=== PATIENT | female | born 1960 | race Native Hawaiian/Other Pacific Islander ===

== ENCOUNTER 2020-04-06 01:16 | Emergency (ER) | payer OTHER ==
[~2020-04-06] VITALS: Ht 154.9 cm; Wt 80.0 kg
[2020-04-06] MEDS ORDERED: [UNRECOGNIZED DRUG - OTHER] PO (01:26)
[2020-04-06] MEDS ORDERED: HTN MEDS PO (01:26)
[2020-04-06] MEDS ORDERED: DIABETIC MEDS PO (01:26)
[2020-04-06] MEDS ORDERED: GABA-529 PO (01:30)
[2020-04-06] MEDS ORDERED: CLOP75TA32 PO (01:30)
[2020-04-06] MEDS ORDERED: LOSA100T58 PO (01:30)
[2020-04-06] MEDS ORDERED: DiphenhydrAMINE HCL 25 MG CAPSULE PO ONE (01:45)
[2020-04-06] MEDS ORDERED: CloNIDine HCL 0.2 MG TABLET PO ONE (01:45)
[2020-04-06 03:09] VITALS: BP 185/104
== END 2020-04-06 03:14 | disposition home or self-care (01) ==
LOC: EMS 01:16
DX: L50.9 Urticaria, unspecified (principal); I10 Essential (primary) hypertension; E11.9 Type 2 diabetes mellitus without complications; J45.909 Unspecified asthma, uncomplicated; Z88.0 Allergy status to penicillin; Z79.899 Other long term (current) drug therapy
CPT/HCPCS: 93005

== ENCOUNTER 2020-04-17 10:53 | Emergency (ER) | payer OTHER ==
[~2020-04-17] VITALS: Ht 154.9 cm; Wt 79.5 kg
[~2020-04-17 10:53] MED LIST: CLOP75TA32 PO; GABA-529 PO; LOSA100T58 PO
[2020-04-17 11:17] LABS: GLUCOSE,POINT OF CARE 292 MG/DL (70-110)
[2020-04-17] MEDS ORDERED: SODIUM CHLORIDE 0.9% 100 ML ONE (11:45)
[2020-04-17] MEDS ORDERED: PB/HYOSCY/ATR/SCOP/LIDO/MAALOX 55 ML BOTTLE PO ONE (11:45)
[2020-04-17] MEDS ORDERED: IOVERSOL 320 MG/ML 100 ML VIAL ONE (11:45)
[2020-04-17 12:18] LABS: BASOPHILS % (AUTO) 0.3 % (0.0-2.0); EOSINOPHILS % (AUTO) 3.6 % (1.0-6.0); HEMATOCRIT 38.9 % (36-46); HEMOGLOBIN 12.8 g/dL (12.0-16.0); LYMPHOCYTES # (AUTO) 1.4 K/uL (1.0-4.8); LYMPHOCYTES % (AUTO) 22.6 % (22.0-44.0); MEAN CORPUSCULAR HEMOGLOBIN 27.4 pg (26.0-34.0); MEAN CORPUSCULAR HGB CONC 32.9 G/dL (31.0-37.0); MEAN CORPUSCULAR VOLUME 83 fL (80-100); MONOCYTES # (AUTO) 0.5 K/uL (0.1-1.0); MONOCYTES % (AUTO) 8.5 % (2.0-9.0); NEUTROPHILS # (AUTO) 3.9 K/uL (1.8-7.7); PLATELET COUNT (AUTO) 207 K/uL (150-450); RED BLOOD CELL COUNT(AUTO) 4.67 MIL/uL (4.00-5.20); RED CELL DISTRIBUTION WIDTH 12.7 % (11.5-14.5)
[2020-04-17 12:25] LABS: CALCIUM, TOTAL 9.1 mg/dL (8.8-10.5); CREATININE 0.95 mg/dL (0.60-1.30); POTASSIUM 3.6 mmol/L (3.5-5.1)
[2020-04-17 12:32] LABS: ALBUMIN 3.5 g/dL (3.4-5.0); TOTAL PROTEIN, SERUM 6.7 g/dL (6.4-8.2)
[2020-04-17 14:06] VITALS: BP 174/81
== END 2020-04-17 15:03 | disposition home or self-care (01) ==
LOC: EMS 10:54
DX: E04.1 Nontoxic single thyroid nodule (principal); J45.909 Unspecified asthma, uncomplicated; E11.9 Type 2 diabetes mellitus without complications; I10 Essential (primary) hypertension; Z88.0 Allergy status to penicillin
CPT/HCPCS: 36415; 70491; 80053; 82962; 85025; 99285; J7050; Q9967

== ENCOUNTER 2020-04-23 05:45 | Emergency (ER) | payer OTHER ==
[~2020-04-23] VITALS: Ht 154.9 cm; Wt 75.5 kg
[2020-04-23 06:16] LABS: BASOPHILS % (AUTO) 0.5 % (0.0-2.0); EOSINOPHILS % (AUTO) 3.6 % (1.0-6.0); HEMATOCRIT 37.8 % (36-46); HEMOGLOBIN 12.5 g/dL (12.0-16.0); LYMPHOCYTES # (AUTO) 1.1 K/uL (1.0-4.8); LYMPHOCYTES % (AUTO) 26.6 % (22.0-44.0); MEAN CORPUSCULAR HEMOGLOBIN 27.1 pg (26.0-34.0); MEAN CORPUSCULAR HGB CONC 33.1 G/dL (31.0-37.0); MEAN CORPUSCULAR VOLUME 82 fL (80-100); MONOCYTES # (AUTO) 0.5 K/uL (0.1-1.0); MONOCYTES % (AUTO) 11.1 % (2.0-9.0); NEUTROPHILS # (AUTO) 2.5 K/uL (1.8-7.7); NEUTROPHILS % (AUTO) 58.2 % (40.0-70.0); PLATELET COUNT (AUTO) 202 K/uL (150-450); RED BLOOD CELL COUNT(AUTO) 4.62 MIL/uL (4.00-5.20); RED CELL DISTRIBUTION WIDTH 12.8 % (11.5-14.5)
[2020-04-23 06:24] LABS: CALCIUM, TOTAL 9.2 mg/dL (8.8-10.5); CREATININE 1.21 mg/dL (0.60-1.30); POTASSIUM 3.6 mmol/L (3.5-5.1)
[2020-04-23 06:30] LABS: ALBUMIN 3.9 g/dL (3.4-5.0); TOTAL PROTEIN, SERUM 7.4 g/dL (6.4-8.2)
[2020-04-23] MEDS ORDERED: SODIUM CHLORIDE 0.9% 100 ML ONE (06:30)
[2020-04-23] MEDS ORDERED: IOVERSOL 350 MG/ML 100 ML VIAL ONE (06:30)
[2020-04-23 08:08] LABS: THYROID STIMULATING HORMONE 1.36 uIU/mL (0.36-3.74)
[2020-04-23 10:34] LABS: COVID AG,FIA SOURCE NASOPHARYNGEAL
[2020-04-23 11:48] VITALS: BP 194/97
== END 2020-04-23 12:27 | disposition short-term general hospital (02) ==
LOC: EMS 05:45
DX: J02.9 Acute pharyngitis, unspecified (principal); R05 Cough; E11.9 Type 2 diabetes mellitus without complications; I10 Essential (primary) hypertension; J45.909 Unspecified asthma, uncomplicated; Z20.828 Contact with and (suspected) exposure to other viral communicable diseases; Z88.0 Allergy status to penicillin; Z91.018 Allergy to other foods
CPT/HCPCS: 36415; 70491; 71045; 80053; 82550; 82962; 83880; 84436; 84443; 84481; 84484; 85025; 87426; 93005; 99285; J7050; Q9967

== ENCOUNTER 2020-05-28 00:50 | Emergency (ER) | payer OTHER ==
[~2020-05-28] VITALS: Ht 154.9 cm; Wt 79.1 kg
[2020-05-28] MEDS ORDERED: HYDR-2924 PO (01:08)
[2020-05-28] MEDS ORDERED: ASPI-728 PO (01:08)
[2020-05-28] MEDS ORDERED: CARV3 PO (01:08)
[2020-05-28] MEDS ORDERED: METF-960 PO (01:08)
[2020-05-28] MEDS ORDERED: ATOR40TA28 PO (01:08)
[2020-05-28] MEDS ORDERED: CLOP-31 PO (01:08)
[2020-05-28] MEDS ORDERED: FLUT1BLS9 IH (01:08)
[2020-05-28] MEDS ORDERED: DEXAMETHASONE 4 MG TABLET PO ONE (03:30)
[2020-05-28 03:52] VITALS: BP 178/88
== END 2020-05-28 03:54 | disposition home or self-care (01) ==
LOC: EMS 00:50
DX: J35.8 Other chronic diseases of tonsils and adenoids (principal); J45.909 Unspecified asthma, uncomplicated; E11.9 Type 2 diabetes mellitus without complications; I10 Essential (primary) hypertension; Z79.82 Long term (current) use of aspirin; Z88.0 Allergy status to penicillin; Z91.018 Allergy to other foods; Z79.84 Long term (current) use of oral hypoglycemic drugs
CPT/HCPCS: 82962; 99283; J8540